=== PATIENT | male | born 1965 | race Caucasian/White ===

== ENCOUNTER → 2017-01-27 | Emergency (ER) | payer SELFPAY ==
[~2017-01-27] VITALS: Ht 180.3 cm; Wt 77.1 kg
[~2017-01-27] MED LIST: DESYREL GENERIC50 MG PO; LORTAB 5/500 501 TAB PO; LORTAB 500 MG-11 TAB PO; NAPROSYN 500MG500 MG PO; SUBOXONE1 FI1 SL
[2017-01-27 11:32] LABS: UTC STREP SCREEN NOT DETECTED (NOTDETECTED)
--- NOTE | 2017-01-27 12:02 | Urgent Treatment Center Report ---
History of Present Issue Date/Time Seen by Provider 01/27/17 1146 Visit Reason Pt arrived:Walked Presenting Problem:FEVER, BODY ACHES BEGAN TUESDAY Location if Accident: Onset of symptoms date/time:/ or onset unknown for:MEDICAL HX UNKNOWN Have you (or family members/close friends) recently traveled outside the [place]? N If Yes, where/when: Have you had exposure to infectious disease within the past month? TB? Other? 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 State that this morning his throat was sore and his sinuses felt full so he came in to get checked ALLERGIES Coded Allergies: codeine (01/27/17) Home Medications Reported Medications Trazodone Hcl (Desyrel Generic 50MG Tab) 50 MG PO QHS HYDROCODONE/ACETAMINOPHEN (Hydrocodon-Acetaminophn 10-325) 1 TAB PO Q4HP BUPRENORPHINE HCL/NALOXONE HCL (Suboxone 12 MG-3 MG Sl Film) 1 % SL [id number] History Medical History General Angina: No AK: No Hypertension? Yes Hyperlipidemia? No CHF? No COPD? Yes Asthma? No CVA? No Seizures? No Diabetes? No GB Disease: No MRSA? No TB? No Cancer? No Immunization HX DT/Tetanus 5-10 YRS Surgical Hx Previous Surgery?Y ANKLE RIGHT JAW Back Surgery NECK Social History Smoking Hx Smoker: Current Every Day Smoker Tobacco: Yes Type Cigarettes Packs/day 1 1/2 - 2 Packs Alcohol Alcohol: Yes Review of Systems All Other Systems Reviewed and Negative Constitutional chills, fever ENT nose congestion, throat pain. Respiratory cough Physical Exam Vital Signs Vital Signs Date Time Temp Pulse Resp B/P Pulse O2 O2 Flow FiO2 Ox Delivery Rate 01/27 1102 97.2 80 18 131/85 98 General Appearance normal appearance, WD/WN, no apparent distress Ear, Nose, Throat sinus pain/drainage, nasal congestion, Throat red, irritated drainage noted in back of throat with minor maxillary sinus tenderness Respiratory Status Yes: trachea midline, chest symmetrical, non tender chest. No: respiratory distress. Lung Sounds bilateral: normal breath sounds, lungs clear. Cardiovascular normal exam, regular rate/rhythm, no peripheral edema Neurologic alert, normal exam, oriented x 3 Medical Decision Making LABS/Meds/Orders Pt receiving controlled substance in ED? No Results/Orders Laboratory Tests 01/27/17 1118: Influenza Type A Ag NOT DETECTED, Influenza Type B Ag NOT DETECTED, Group A Strep Screen NOT DETECTED Current Medication Orders Sig/Bekah Start time Last Medication Dose Route Stop Time Status Admin Ceftriaxone Sodium 1 GM ONCE ONE 01/27 1200 DC IM 01/27 1201 Lidocaine HCl 0 ONCE ONE 01/27 1200 DC IM 01/27 1201 Methylprednisolone 125 MG ONCE ONE 01/27 1200 DC Sodium Succinate IM 01/27 1201 Orders Procedure Date/time Status UTC STREP SCREEN 01/27 111 Complete UTC FLU A,B 01/27 111 Complete Departure Departure Time of Disposition 1201 Disposition DC Home or Self Care(routine) Clinical Impression Primary Impression: Upper respiratory infection Qualifiers: URI type: unspecified URI Qualified Code: J06.9 - Acute upper respiratory infection, unspecified Condition STABLE Patient Instructions Cough, DI for Nasal Congestion, Sore Throat Additional Instructions * Monitor Temp. Tylenol and/or Ibuprofen as needed. ER if fever is no less than 101 despite alternating Tylenol and Ibuprofen * Encourage fluids, water, Gatorade, powerade, pedialyte if infant/toddler/or child * Warm salt water gargles for throat irritation *Warm fluids *Sore throat lozenges *Sleep elevated *humidifier or vaporizer Lots of rest Increase fluids, water, Gatorade, powerade *Flonase 2 sprays each nostril daily but may take 2-3 days to notice improvement with it Follow up IMMEDIATELY for new or worsening of symptoms OR no noticeable improvement over the next 48-72 hours. 911 immediately for any life threatening symptoms such as chest pain or difficulty breathing Discharge Counseling Counseled pt/family regarding diagnosis, test results, medications/RX, home care, follow up needs at 1202
[2017-01-27 12:13] VITALS: BP 131/85
--- OUTSIDE RECORDS SUMMARY | 2017-01-27 12:45 | External Medical Summary Rpt | CCD ---
Author Author , JONEL REMY Address Unknown Phone [email or web address] Care Team Providers Care Document Restorer Name Role Phone [facility] Unavailable [place], [facility] [place] [facility] Unavailable Un[facility], [facility] Unavailable Unavailable INTERNAL MED, [facility] INTERNAL [id number], Unavailable Unavailable [id number] Unavailable Unavailable [id number] # [id number], [facility] [id number] # [phone] Purpose Continuity of Care Document - 04-03-2009 through 2016 Problems Code Diagnosis DOS Provider Status 7242 LUMBAGO 12-09-2009 [facility] INTERNAL MED 496 CHRONIC 12-05-2009 [place] [facility] NEC V5409 OTH 12-05-2009 [facility] [facility] INTERNAL FIXATION DEVICE Medications Na ND Rx Da Fi Fi Am Da Di Ph RX Ph St me C No te ll ll ou ys ag ar # ys at rm s nt no ma ic us Or Da si cy ia de te s n re d AM 00 04 10 1 30 10 EA 17 AR Ac OX 78 -1 -[address] 14 NO ti IC 12 0- 7- 00 SI 24 LD ve IL 61 20 20 DE LI 30 10 10 RI N 5 PH CH 50 AR AR 0 MA D MG CY W CA OF PS UL CY E NT HI AN A 00 10 10 1 60 15 EA 19 MC Ac 59 -1 -[address] 60 KE ti 10 SI 73 ME ve 34 20 20 DE E 90 10 10 JR 1 PH AR [place] MA LL CY IA M OF F CY NT HI AN A 00 10 10 1 20 10 EA 19 MC Ac 14 -1 -[address] 60 KE ti 31 9 9 00 SI 74 ME ve 47 20 20 DE E 70 10 10 JR 5 PH AR [place] MA LL CY IA M OF F CY NT HI AN A SP 00 10 10 2 30 30 EA 19 MC Ac IR 59 -1 -[address] 61 KE ti IV 70 9- 9- 00 SI 18 ME ve A 07 20 20 DE E 18 54 10 10 JR 1 PH MC AR WI G MA LL CP CY IA -H M AN OF F DI EVANS CY LE NT R HI AN A 00 06 10 5 60 30 EA 17 AR Ac 55 -1 -[address] 95 NO ti 50 1- 7- 00 SI 10 LD ve 36 20 20 DE 30 10 10 RI 5 PH CH AR AR MA D CY W OF CY NT HI AN A 59 02 09 5 8. 16 RI 82 AR Ac 31 -1 -1 50 TE 38 NO ti 00 2- 6- 0 77 LD ve 57 20 20 AI 92 10 10 D RI 0 PH CH AR AR MA D CY W 03 93 8 # 03 93 00 06 08 5 60 30 EA 17 AR Ac 55 -1 -[address] 95 NO ti 50 1- 3- 00 SI 10 LD ve 36 20 20 DE 30 10 10 RI 5 PH CH AR AR MA D CY W OF CY NT HI AN A CY 00 07 07 0 15 5 EA 18 FA Ac CL 37 -2 -[address] 45 RA ti OB 80 3- 3- 00 SI 38 GA ve EN 75 20 20 DE SS ZA 11 10 10 O OH 0 PH DE IN AR E MA N 10 CY MG OF TA CY BL NT ET HI AN A ME 00 07 07 0 21 6 EA 18 FA Ac TH 78 -2 -[address] 45 RA ti YL 15 3- 3- 00 SI 39 GA ve OH 02 20 20 DE SS ED 20 10 10 O NI 7 PH DE SO AR LO MA N NE CY 4 OF MG CY DO NT SE HI PK AN A 00 06 07 5 60 30 EA 17 AR Ac 55 -1 -[address] 95 NO ti 50 1- 3- 00 SI 10 LD ve 36 20 20 DE 30 10 10 RI 5 PH CH AR AR MA D CY W OF CY NT HI AN A DI 00 06 06 5 60 30 EA 17 AR Ac AZ 17 -1 -[address] 95 NO ti EP 23 1- 4- 00 SI 10 LD ve AM 92 20 20 DE 5 67 10 10 RI 0 PH CH MG AR AR MA D TA CY W BL ET OF CY NT HI AN A DI 00 04 06 5 30 30 EA 17 AR Ac AZ 17 -1 -[address] 14 NO ti EP 23 0- 9- 00 SI 25 LD ve AM 92 20 20 DE 5 67 10 10 RI 0 PH CH MG AR AR MA D TA CY W BL ET OF CY NT HI AN A 59 02 05 5 8. 16 RI 82 AR Ac 31 -1 -2 50 TE 38 NO ti 00 2- 7- 0 77 LD ve 57 20 20 AI 92 10 10 D RI 0 PH CH AR AR MA D CY W 03 93 8 # 03 93 DI 00 04 05 5 30 30 EA 17 AR Ac AZ 17 -1 -[address] 14 NO ti EP 23 0- 8- 00 SI 25 LD ve AM 92 20 20 DE 5 67 10 10 RI 0 PH CH MG AR AR MA D TA CY W BL ET OF CY NT HI AN A 59 02 04 5 8. 16 RI 82 AR Ac 31 -1 -3 50 TE 38 NO ti 00 2- 0- 0 77 LD ve 57 20 20 AI 92 10 10 D RI 0 PH CH AR AR MA D CY W 03 93 8 # 03 93 EN 60 04 04 0 12 30 EA 17 AR Ac DO 95 -1 -[address] 14 NO ti CE 10 0- 0- 00 SI 23 LD ve T 71 20 20 0 DE 10 27 10 10 RI -3 0 PH CH 25 AR AR MA D MG CY W TA OF BL ET CY NT HI AN A AM 00 04 04 1 30 10 EA 17 AR Ac OX 78 -1 -[address] 14 NO ti IC 12 0- 0- 00 SI 24 LD ve IL 61 20 20 DE LI 30 10 10 RI N 5 PH CH 50 AR AR 0 MA D MG CY W CA OF PS UL CY E NT HI AN A DI 00 04 04 5 30 30 EA 17 AR Ac AZ 17 -1 -[address] 14 NO ti EP 23 0- 0- 00 SI 25 LD ve AM 92 20 20 DE 5 67 10 10 RI 0 PH CH MG AR AR MA D TA CY W BL ET OF CY NT HI AN A 59 02 03 5 8. 16 RI 82 AR Ac 31 -1 -2 50 TE 38 NO ti 00 2- 7- 0 77 LD ve 57 20 20 AI 92 10 10 D RI 0 PH CH AR AR MA D CY W 03 93 8 # 03 93 OH 00 03 03 [address] Ac ED 60 -1 -[address] 80 EP ti NI 35 6- 6- 00 SI 31 HE ve SO 33 20 20 DE NS NE 83 10 10 2 PH DO 10 AR N MA R MG CY TA OF BL ET CY NT HI AN A DI 00 02 02 00 60 30 RI 82 AR Ac CL 78 -1 -2 .0 TE 21 NO ti OF 11 2- 6- 00 75 LD ve EN 78 20 20 AI AC 90 10 10 D RI 1 PH CH SO AR AR D M D EC #3 W 93 75 8 MG TA B 59 02 02 00 8. 16 RI 82 AR Ac 31 -1 -2 50 TE 21 NO ti 00 2- 6- 0 76 LD ve 57 20 20 AI 92 10 10 D RI 0 PH CH AR AR M D #3 W 93 8 AZ 59 01 02 00 6[address] Ac IT 76 -2 -1 00 TE 93 EP ti HR 23 9- 1- 0 46 HE ve OM 06 20 20 AI NS YC 00 10 10 D IN 1 PH DO AR N 25 M R 0 #3 MG 93 8 TA BL ET
--- OUTSIDE RECORDS SUMMARY | 2017-01-27 12:45 | External Medical Summary Rpt | CCD ---
Author Author , JONEL REMY Address Unknown Phone [email or web address] Care Team Providers Care Account Relationship Manager Name Role Phone [facility] [place]available [place], [facility] [place] [facility] [place] [facility] Unavailable Unavailable [facility], [facility] Unavailable Unavailable INTERNAL MED, [facility] INTER[id number], Unavailable Unavailable [id number] Unavailable Unavailable [id number] # [id number], [facility] [id number] # [id number] Purpose Continuity of Care Document - 04-03-2009 through 2016 Problems Code Diagnosis DOS Provider Status 7242 LUMBAGO 12-09-2009 [facility] INTERNAL MED 496 CHRONIC 12-05-2009 [place] [facility] NEC V5409 OTH 12-05-2009 [place] [facility] INTERNAL FIXATION [...] ST 60 KE ti 10 SI 73 PA ve 34 20 20 DE E 90 10 10 JR 1 PH AR [place] MA LL CY IA M OF F CY NT HI AN A 00 10 10 1 20 10 EA 19 MC Ac 14 -1 -[address] 60 KE ti 31 9 9 00 SI 74 PA ve 47 20 20 DE E 70 10 10 JR 5 PH AR [place] MA LL CY IA M OF F CY NT HI AN A SP 00 10 10 2 30 30 EA 19 MC Ac IR 59 -1 -[address] 61 KE ti IV 70 9- 9- 00 SI 18 PA ve A 07 20 20 DE E [...] DE SS ZA 11 10 10 O [place] 0 PH DE IN AR E MA N 10 CY MG OF TA CY BL NT ET HI AN A ME 00 07 07 0 21 6 EA 18 FA Ac TH 78 -2 -[address] 45 RA ti YL 15 3- 3- 00 SI 39 GA ve [place] 02 20 20 DE SS ED 20 [...] W 03 93 8 # 03 93 [place] 00 03 03 0 50 20 EA [...]
--- OUTSIDE RECORDS SUMMARY | 2017-01-27 12:45 | External Medical Summary Rpt | CCD ---
Author Author , JONEL REMY Address Unknown Phone [email or web address] Care Team Providers Care Supervisor Cereal Name Role Phone [facility] Unavailable Unavailable [place], [facility] Unavailable Unavailable [facility], [facility] Unavailable Unavailable INTERNAL MED, [facility] INTER[id number], Unavailable Unavailable [id number] Unavailable Unavailable [id number] # [id number], [facility] [id number] # [phone] Purpose Continuity of Care Document - 04-03-2009 through 2016 Problems Code Diagnosis DOS Provider Status 7242 LUMBAGO 12-09-2009 [facility] INTERNAL MED 496 CHRONIC 12-05-2009 [place] [facility] NEC V5409 OTH 12-05-2009 [facility] [facility] INTERNAL FIXATION [...] .0 ST 14 NO ti IC 12 0 7 00 SI 24 LD ve IL 61 20 20 DE LI 30 10 10 RI N 5 PH CH 50 AR AR 0 MA D MG CY W CA OF PS UL CY E NT HI AN A 00 10 10 1 60 15 EA 19 MC Ac 59 -1 -[address] 60 KE ti 10 SI 73 WA ve 34 20 20 DE E 90 10 10 JR 1 PH AR [place] MA LL CY IA M OF F CY NT HI AN A 00 10 10 1 20 10 EA 19 MC Ac 14 -1 -[address] 60 KE ti 31 SI 74 WA ve 47 20 20 DE E 70 10 10 JR 5 PH AR [place] MA LL CY IA M OF F CY NT HI AN A SP 00 10 10 2 30 30 EA 19 MC Ac IR 59 -1 -[address] 61 KE ti IV 70 9- 9- 00 SI 18 WA ve A 07 20 20 DE E [...] W OF CY NT HI AN A 00 06 07 5 60 [...] DE SS ZA 11 10 10 O WI 0 PH DE IN AR E MA N 10 CY MG OF TA CY BL NT ET HI AN A ME 00 07 07 0 21 6 EA 18 FA Ac TH 78 -2 -[address] 45 RA ti YL 15 3- 3- 00 SI 39 GA ve WI 02 20 20 DE SS ED 20 10 10 O NI 7 PH DE SO AR LO MA N NE CY 4 OF MG CY DO NT SE HI PK AN A DI 00 06 06 5 [...] W 03 93 8 # 03 93 [place] 00 03 03 0 50 20 EA [...]
--- OUTSIDE RECORDS SUMMARY | 2017-01-27 12:45 | External Medical Summary Rpt | CCD ---
Author Author , JONEL REMY Address Unknown Phone [email or web address] Care Team Providers Care Superintendent Seed Mill Name Role Phone [facility] Unavailable Unavailable [place], [facility] Unavailable Unavailable [facility], [facility] Unavailable Unavailable INTERNAL MED, [facility] INTERNAL MED [id number], Unavailable Unavailable [id number] Unavailable Unavailable [id number] # [id number], [facility] [id number] # [phone] Purpose Continuity of Care Document - 04-03-2009 through 2016 Problems Code Diagnosis DOS Provider Status 7242 LUMBAGO 12-09-2009 [facility] INTERNAL MED 496 CHRONIC 12-05-2009 [place] [facility] NEC V5409 OTH 12-05-2009 [place] [facility] INTERNAL FIXATION DEVICE [...] ST 60 KE ti [address] ve 34 20 20 DE E 90 10 10 JR 1 PH AR [place] MA LL CY IA M OF F CY NT HI AN A 00 10 10 1 20 10 EA 19 MC Ac 14 -1 -[address] 60 KE ti [address] ve 47 20 20 DE E 70 10 10 JR 5 PH AR [place] MA LL CY IA M OF F CY NT HI AN A SP 00 10 10 2 30 30 EA 19 MC Ac IR 59 -1 -[address] 61 KE ti IV 70 9- 9- [address] ve A 07 20 20 DE E [...] DE SS ZA 11 10 10 O W[place] 0 PH DE IN AR E MA N 10 CY MG OF TA CY BL NT ET HI AN A ME 00 07 07 0 21 6 EA 18 FA Ac TH 78 -2 -[address] 45 RA ti YL 15 3- 3- 00 SI 39 GA ve WV 02 20 20 DE SS ED 20 [...] W 03 93 8 # 03 93 [place] 00 03 03 0 50 20 EA [...]
--- OUTSIDE RECORDS SUMMARY | 2017-01-27 12:46 | External Medical Summary Rpt | CCD ---
Demographics Preferred Language [place] Marital Status Unknown Religion Affiliation Unknown Race Unknown Ethnic Group Unknown Author Author , JONEL REMY Address Unknown Phone Immunization No patient found.
--- OUTSIDE RECORDS SUMMARY | 2017-01-27 12:46 | External Medical Summary Rpt | CCD ---
Demographics Preferred Language [place] Marital Status Unknown Jewish Affiliation Unknown Race Unknown Ethnic Group Unknown Author Author , JONEL REMY Address Unknown Phone Immunization No patient found.
--- OUTSIDE RECORDS SUMMARY | 2017-01-27 12:46 | External Medical Summary Rpt ---
Author Author JONEL Fish, [employer] Address Unknown Phone Unavailable Results CHEST LAT/PA Observa Value Referen Units Interpr Notes Date tion ce etation Range TEXT Name: No No No No July 04 DIAGNOS MITCHELL informa informa informa informa 2012 IS ADONIS tion in tion in tion in tion in 12:22 BATTERY FABIAN source source source source PM data data data data Phys: LA NENA VAN : [id number] Age: 47 Sex: M Acct: [id number] Loc: M ER Exam Date: Status: REG ER Radiolo gy No: Unit No: [id number] XAM# TYPE/EX AM RESULT0 [id number] RAD/AURA ST LAT/PA Examina tion: PA and lateral chest 2 views. Clinica l Informa tion: Cough. Chest pain. Shortne ss of breath. Finding s: The soft tissue and hattie thorax are unremar kable. The heart size and pulmona ry vascula rity are normal. There are no hilar or mediast inal masses. The lungs are clear of acute alveola r disease . Impress ion: 1. Normal chest. REPORT SIGNED IN OTHER VENDOR SYSTEM Reporte d By: BRAVO FAIR CC: Manisha MATA M.D. Technol ogist: AUBRIE Schmitz RAY Transcr ibed Date/Ti me: (3591) Transcr iptioni st: n/a Printed Date/Ti me: (0555) PAGE 1 Signed Report
--- OUTSIDE RECORDS SUMMARY | 2017-01-27 12:46 | External Medical Summary Rpt ---
[...] : 966 Age: 47 Sex: M Acct: [id number] Loc: M ER Exam Date: Status: REG ER Radiolo gy No: Unit No: [id number] XAM# TYPE/EX AM RESULT0 [id number] RAD/AURA ST LAT/PA Examina tion: PA [...] AUBRIE Schmitz RAY Transcr ibed Date/Ti me: (7025) Transcr iptioni st: n/a Printed Date/Ti me: (8724) PAGE 1 Signed Report
== END ==
LOC: UTC 10:27
PROVIDERS: Nurse Practitioner
DX: J06.9 Acute upper respiratory infection, unspecified (principal)